=== PATIENT | male | born 1960 | race Caucasian/White ===

== ENCOUNTER 2016-09-26 18:11 | Emergency (ER) | payer BC, OTHER ==
[2016-09-26 18:53] VITALS: BP 164/93
--- NOTE | 2016-09-26 20:23 | RAD ---
HISTORY: Left lower leg trauma, calf swelling COMPARISONS: None VIEWS: 8, Frontal and lateral views of the left foreleg, frontal, lateral, and oblique views of the left foot, frontal, lateral, and oblique views of the left ankle FINDINGS: BONE DENSITY: Normal. BONES: There is no displaced fracture. Incidentally noted is an exostosis of the distal fifth metatarsal JOINTS: There is no arthropathy. ALIGNMENT: There is no dislocation. SOFT TISSUES: Unremarkable. OTHER FINDINGS: None. IMPRESSION: NO ACUTE OSSEOUS INJURY TO THE LEFT FORELEG, ANKLE, OR FOOT. IF SYMPTOMS PERSIST, RECOMMEND REPEAT IMAGING.
--- NOTE | 2016-09-28 16:29 | UC ---
Bryce Rashid Michael, scribed for Allison Matamoros MD on 09/26/16 at 1944 . Lower Extremity/Ankle HPI - HPI Summary HPI Summary: 56 y/o male comes to [facility] after a skiing accident 6 days ago. The pt c/o LLE swelling and stiffness. He rates the LLE pain as a 1 out of 10 on a pain assessment scale and the stiffness is aggravated with ambulation. The pt denies knee pain, CP, palpitations, and SOB. - History of Current Complaint Chief Complaint: UCLowerExtremity Stated Complaint: LT LEG INJURY Time Seen by Provider: 09/26/16 19:32 Hx Obtained From: Patient, Medical Records Onset/Duration: Gradual Onset, Lasting Days, Still Present Severity Initially: Mild Severity Currently: Mild Pain Intensity: 1 Pain Scale Used: 0-10 Numeric Aggravating Factor(s): Ambulation Alleviating Factor(s): Nothing Related History: Other - skiiing - Allergies/Home Medications Allergies/Adverse Reactions: Allergies Allergy/AdvReac Type Severity Reaction Status Date / Time No Known Allergies Allergy Verified 09/26/16 21:34 PMH/Surg Hx/FS Hx/Imm Hx Endocrine History Of: Denies: Diabetes, Thyroid Disease Cardiovascular History Of: Denies: Cardiac Disorders, Hypertension Respiratory History Of: Denies: COPD, Asthma GI/ History Of: Denies: Ulcer - Surgical History Surgical History: None - Family History Known Family History: Negative: Blood Disorder - Social History Occupation: Employed Full-time Lives: With Family Alcohol Use: None Substance Use Type: None Smoking Status (MU): Never Smoked Tobacco Review of Systems Respiratory: Negative - SOB Cardiovascular: Negative - CP, palpitaions Musculoskeletal: Other: - LLE swelling and stiffness All Other Systems Reviewed And Are Negative: Yes Physical Exam Triage Information Reviewed: Yes Appearance: Well-Nourished Vital Signs: Initial Vital Signs Temp 98.8 F 09/26/16 18:47 Pulse 65 09/26/16 18:47 Resp 16 09/26/16 18:47 BP 164/93 09/26/16 18:47 Pulse Ox 97 09/26/16 18:47 Vital Signs Reviewed: Yes Eye Exam: Normal ENT Exam: Normal Neck exam: Normal - no adenopathy Respiratory Exam: Normal Respiratory: Positive: Chest non-tender, Lungs clear, Normal breath sounds, No respiratory distress, Other: - no dyspnea, no tachypnea. nml respiratory rate Cardiovascular: Positive: RRR, No Murmur, Pulses Normal, Brisk Capillary Refill Abdominal Exam: Normal Abdomen Description: Positive: Nontender, No Organomegaly, Soft Bowel Sounds: Positive: Present Musculoskeletal: Positive: Other: - lower distal tibia area tenderness. bruising of the left heel. Neurological Exam: Normal - nonfocal. grossly intact. Psychological Exam: Normal - conserving easily Psychological: Positive: Age Appropriate Behavior Skin Exam: Normal - no rashes visible Diagnostics - Radiology Ankle XR Xray Interpretation: No Acute Changes - NO ACUTE OSSEOUS INJURY TO THE LEFT FORELEG, ANKLE, OR FOOT. IF SYMPTOMS PERSIST, RECOMMEND REPEAT IMAGING. Radiology Interpretation Completed By: Radiologist Foot XR Xray Interpretation: No Acute Changes - NO ACUTE OSSEOUS INJURY TO THE LEFT FORELEG, ANKLE, OR FOOT. IF SYMPTOMS PERSIST, RECOMMEND REPEAT IMAGING. Radiology Interpretation Completed By: Radiologist Leg XR Xray Interpretation: No Acute Changes - NO ACUTE OSSEOUS INJURY TO THE LEFT FORELEG, ANKLE, OR FOOT. IF SYMPTOMS PERSIST, RECOMMEND REPEAT IMAGING. Radiology Interpretation Completed By: Radiologist Lower Extremity Course/Dx - Course Course Of Treatment: Patient offered and encouraged EMS. Patient declines. Discussed patient transfer to [facility] ED with Paramjit Lee. - Differential Dx/Diagnosis Provider Diagnoses: Left lower extremity swelling and pain Discharge - Discharge Plan Condition: Stable Disposition: AGAINST MEDICAL ADVICE Referrals: Lisa Hector MD [Primary Care Provider] - The documentation as recorded by the Bryce magallanes Michael accurately reflects the service I personally performed and the decisions made by me, Allison Matamoros MD.
== END 2016-09-26 20:35 | disposition left against medical advice (07) ==
LOC: UCEAST 18:11
DX: M79.89 Other specified soft tissue disorders (principal); M79.605 Pain in left leg
CPT/HCPCS: 99212; G0463

== ENCOUNTER 2016-09-26 21:29 | Emergency (ER) | payer OTHER ==
[2016-09-26 21:33] VITALS: BP 148/85
--- NOTE | 2016-09-26 22:41 | RAD ---
HISTORY: Left leg pain COMPARISONS: None relevant TECHNIQUE: Multiple transverse and longitudinal ultrasound images were obtained of the left lower extremity from the level of the common femoral vein inferiorly through to the infrapopliteal veins using grayscale, color Doppler, and spectral Doppler imaging with and without compression and with augmentation. Comparison images were obtained of the contralateral common femoral vein. FINDINGS: VEINS: The venous system of the left lower extremity is compressible throughout its course, with normal flow on color Doppler imaging and normal response to augmentation on spectral Doppler imaging. SOFT TISSUES: There is a small fluid collection within the left calf measuring approximately 4.6 x 0.7 x 11.2 cm in size. OTHER FINDINGS: None. IMPRESSION: 1. NO LEFT LOWER EXTREMITY DEEP VEIN THROMBOSIS 2. SMALL FLUID COLLECTION WITHIN THE LEFT CALF MAY REFLECT SEROMA/EVOLVING HEMATOMA GIVEN THE HISTORY OF TRAUMA
--- NOTE | 2016-09-27 00:33 | ED ---
Lower Extremity - HPI Summary HPI Summary: Patient presents to ED with CC left lower extremity swelling after sustaining an injury while skiing. He states he fell and came out of his boot. Since then , he has had ecchymosis around the posterior portion of the left foot, +3 swelling and painful to walk. He was ambulatory on arrival and states he was able to bike to work this am. His pain is located in the posterior calf. He denies recent travel, smoking, malignancy or recent bedrest. He has never had anything like this before. Denies PMHx and denies medications. - History of Current Complaint Chief Complaint: EDExtremityLower Stated Complaint: LT LEG SWOLLEN Time Seen by Provider: 09/26/16 22:00 Hx Obtained From: Patient Mechanism Of Injury: Fall From A Standing Position, Twisted Onset of Pain: Immediate Onset/Duration: Hours Severity Initially: Moderate Severity Currently: Moderate Pain Intensity: 0 Pain Scale Used: 0-10 Numeric Timing: Constant Location: Is Discrete @ - left posterior calf Character Of Pain: Aching, Throbbing Associated Signs And Symptoms: Positive: Swelling, Bruising Aggravating Factor(s): Standing, Ambulation Alleviating Factor(s): Rest, Elevation Able to Bear Weight: Yes - Risk Factors Gout Risk Factors: Age Over 40, Male DVT Risk Factors: Negative Septic Arthritis Risk Factor: Negative - Allergies/Home Medications Allergies/Adverse Reactions: Allergies Allergy/AdvReac Type Severity Reaction Status Date / Time No Known Allergies Allergy Verified 09/26/16 21:34 PMH/Surg Hx/FS Hx/Imm Hx Previously Healthy: Yes Endocrine/Hematology History: Denies: Hx Diabetes, Hx Thyroid Disease Cardiovascular History: Denies: Hx Hypertension Respiratory History: Denies: Hx Asthma, Hx Chronic Obstructive Pulmonary Disease (COPD) GI History: Denies: Hx Ulcer Infectious Disease History: No Infectious Disease History: Denies: Hx Hepatitis, Hx Human Immunodeficiency Virus (HIV), Traveled Outside the [place] in Last 30 Days - Social History Occupation: Employed Full-time Lives: With Family Alcohol Use: None Hx Substance Use: No Substance Use Type: Reports: None Hx Tobacco Use: No Smoking Status (MU): Never Smoked Tobacco Do You Chew or Dip Tobacco: No Review of Systems Constitutional: Negative Eyes: Negative Cardiovascular: Negative Respiratory: Negative Genitourinary: Negative Positive: no symptoms reported, see HPI Positive: Myalgia Positive: Bruising Neurological: Negative Psychological: Normal All Other Systems Reviewed And Are Negative: Yes Physical Exam Triage Information Reviewed: Yes Vital Signs On Initial Exam: Initial Vitals Temp Pulse Resp BP Pulse Ox 97.9 F 60 16 148/85 100 09/26/16 21:30 09/26/16 21:30 09/26/16 21:30 09/26/16 21:30 09/26/16 21:30 Vital Signs Reviewed: Yes Appearance: Positive: Well-Appearing, Well-Nourished Skin: Positive: Warm, Skin Color Reflects Adequate Perfusion Eyes: Positive: Normal, KEN ENT: Positive: Normal ENT inspection Neck: Positive: Supple, No Lymphadenopathy Respiratory/Lung Sounds: Positive: Clear to Auscultation, Breath Sounds Present Cardiovascular: Positive: Normal, RRR Bowel Sounds: Positive: Present Musculoskeletal: Positive: Pain @ - posterior calf Neurological: Positive: Normal, Sensory/Motor Intact, Alert, Oriented to Person Place, Time Psychiatric: Positive: Normal AVPU Assessment: Alert Diagnostics - Vital Signs Vital Signs Temp Pulse Resp BP Pulse Ox 09/26/16 21:30 97.9 F 60 16 148/85 100 - Laboratory Lab Statement: Any lab studies that have been ordered have been reviewed, and results considered in the medical decision making process. Lower Extremity Course/Dx - Course Course Of Treatment: Patient sent for US. Xrays at of lower leg and ankle revealed no fracture. Patient encouraged to elevate and ice and use compression hose and ibuprofen for the time until healing. He agrees and OK with discharge and follow up. - Diagnoses Differential Diagnosis/HQI/PQRI: Positive: Contusion, DVT, Sprain, Strain Provider Diagnoses: Muscle strain Discharge - Discharge Plan Condition: Stable Disposition: HOME Patient Education Materials: Leg Edema (ED) Referrals: Lisa Hector MD [Primary Care Provider] - Additional Instructions: Ibuprofen 600mg three times daily with meals for pain. Follow up with orthopedic physician in 5-7 days if symptoms persist. If numbness, tingling, decreased sensation, increased pain, temperature changes or pallor noted in toes, come back to ER immediately. Protect the area. For your comfort level, do not bear weight, pull or push until you are without pain. Rest the involved area, but not too long. You may need to be off your injury for some time to allow for healing, however excessive immobilization of joints can lead to stiffness and delay healing time. Early mobilization is encouraged if it is pain-free. Ice. Not directly on the skin. Cover with a towel. Apply ice no more than 30 minutes at a time Compression: You may use and keep an alla wrap bandage over the injury to decrease swelling. Again, this should be limited and be taken off periodically to encourage early range of motion and mobilization. Elevate: Try to elevate the injured area above the heart whenever possible.
== END 2016-09-26 23:36 | disposition home or self-care (01) ==
LOC: ED 21:29
DX: S86.912A Strain of unspecified muscle(s) and tendon(s) at lower leg level, left leg, initial encounter (principal); W19.XXXA Unspecified fall, initial encounter; Y93.23 Activity, snow (alpine) (downhill) skiing, snowboarding, sledding, tobogganing and snow tubing; Y92.9 Unspecified place or not applicable
CPT/HCPCS: 99281

== ENCOUNTER 2019-01-22 12:59 | Emergency (ER) | payer OTHER ==
[2019-01-22 13:13] VITALS: BP 154/98
--- NOTE | 2019-01-22 13:51 | UC ---
Skin Complaint HPI - HPI Summary HPI Summary: 59 year old male with no pmH presents with burning, itchy sensation, worse at night . ~ 8 days. started in groin, spread to chest, upper arms, b/l thighs. no rashes seen. Patient lives in tent under lean[place]to outdoors with a bird living in lean-to next to tent. recent travel [place] [facility] with exposure to sand. STayed at 5 star hotel, did to laundry there. NO new food, no eating mushrooms, no ETOH/ drug use. Denies fever, chills, nipples pain, rashes, joint ahches, headaches, muscle pains, involvement of hair. Otherwise feeling well. - History of Current Complaint Chief Complaint: UCSkin Time Seen by Provider: 01/22/19 13:12 Stated Complaint: RASH Hx Obtained From: Patient Onset/Duration: Sudden Onset, Lasting Days, Still Present Timing: Constant Current Severity: None Pain Intensity: 0 Pain Scale Used: 0-10 Numeric Location: Diffuse Character: Exposure to Heat Intermittent Aggravating Factor(s): Nothing Alleviating Factor(s): Nothing Associated Signs & Symptoms: Negative: Numbness, Weakness, Pallor, Difficulty Breathing, Fever, Chills, Chest Pain, Throat Tightening, Rash, Abdominal Pain, Lightheadedness, Syncope, Bruising, Tenderness, Red Streaks, Joint Swelling - Allergy/Home Medications Allergies/Adverse Reactions: Allergies Allergy/AdvReac Type Severity Reaction Status Date / Time oxacillin Allergy Hives Verified 01/22/19 13:13 PMH/Surg Hx/FS Hx/Imm Hx Previously Healthy: Yes - Surgical History Surgical History: Yes Surgery Procedure, Year, and Place: Left knee. TONSILS - Family History Known Family History: Positive: None, Non-Contributory - Social History Alcohol Use: None Substance Use Type: None Smoking Status (MU): Never Smoked Tobacco Review of Systems All Other Systems Reviewed And Are Negative: Yes Constitutional: Positive: Negative Skin: Positive: Other - itching, burning sensation on skin Motor: Negative: Decreased ROM, Weakness Musculoskeletal: Negative: Arthralgia, Calf Tenderness, Decreased ROM, Edema, Myalgia Neurological: Negative: Weakness, Paresthesia, Numbness Is Patient Immunocompromised?: No Physical Exam Triage Information Reviewed: Yes Appearance: Well-Appearing, No Pain Distress, Well-Nourished Vital Signs: Initial Vital Signs Temp 99.7 F 01/22/19 13:10 Pulse 69 01/22/19 13:10 Resp 17 01/22/19 13:10 BP 154/98 01/22/19 13:10 Pulse Ox 98 01/22/19 13:10 Vital Signs Reviewed: Yes Eyes: Positive: Conjunctiva Clear Neck: Positive: Supple, Nontender, No Lymphadenopathy. Negative: Nuchal Rigidity Respiratory: Positive: No respiratory distress, No accessory muscle use Abdomen Description: Positive: Soft. Negative: Distended, Guarding Male Genital Exam: Positive: Normal Genitalia. Negative: Epididymal Tenderness , Erythema, Hernia Mass, Inguinal Tenderness, Lesions Musculoskeletal: Positive: Strength Intact, ROM Intact. Negative: No Edema Neurological: Positive: Alert, Muscle Tone Normal Psychological Exam: Normal Skin: Positive: Other - no rashes, lesions, excoriations, vesicles, erytthema seen throughout body, including skin folds, between finger/ toes, nippes, chest , groin b/l, UE, LEs no TTP over joints, no effusions noted.. Negative: Rashes , Breakdown Course/Dx - Course Course Of Treatment: Discussed case with Dr. Pate and Dr. Rogers, patients PCP. lab work drawn to eval for interal cause such as kidney, liver damage. Treatment for mites including washing all bedding/ home and showering. ANtihistamines to help with itch at night. - Differential Diagnoses - Skin Complaint Differential Diagnoses: Angioedema, Cellulitis, Contact Dermatitis, Scabies, Tick Born Illness, Viral Exanthem - Diagnoses Provider Diagnosis: Contact dermatitis Discharge - Sign-Out/Discharge Documenting (check all that apply): Patient Departure All imaging exams completed and their final reports reviewed: No Studies - Discharge Plan Condition: Good Disposition: HOME Patient Education Materials: Contact Dermatitis (ED) Referrals: Lisa Rogers MD [Primary Care Provider] - (2-5 days ) Additional Instructions: - Blood work drawn to evaluate for systemic cause of itching, follow up with Dr. Rogers. She was notified of your problem. Follow up with her this week - ANtihistamine, such as benadryl, to help with sleeping at night - Wash bedding, living area in hot water - Daily showering - Continue to monitor area for rash - Increase fluid intake - Billing Disposition and Condition Condition: GOOD Disposition: Home - Attestation Statements Provider Attestation: I was available for consult. This patient was seen by the SUZANNA. The patient was not presented to, seen by, or examined by me. -Cassius
[2019-01-23 13:42] LABS: Hematocrit 38 % (42-52); Hemoglobin 13.2 g/dL (14.0-18.0); Mean Corpuscular HGB Conc 35 g/dL (31-36); Mean Corpuscular Hemoglobin 30 pg (27-31); Mean Corpuscular Volume 86 fL (80-94); Mean Platelet Volume 7.8 fL (7.4-10.4); Platelet Count 298 10^3/uL (150-450); Red Blood Count 4.44 10^6 /uL (4.18-5.48); Red Cell Distribution Width 13 % (10-15); White Blood Count 6.4 10^3/uL (3.5-10.8)
[2019-01-23 13:56] LABS: Albumin 4.2 g/dL (3.2-5.2); Albumin/Globulin Ratio 2.1 (1-3); BUN/Creatinine Ratio 18.9 (8-20); Calcium 9.1 mg/dL (8.6-10.3); EGFR African American 97.5 (>60); EGFR Non-African American 80.6 (>60); Potassium 4.2 mmol/L (3.5-5.0); Total Bilirubin 1.1 mg/dL (0.2-1.0); Total Protein 6.2 g/dL (6.4-8.9)
[2019-01-23 14:08] LABS: TSH (Thyroid Stimulating Horm) 2.29 mcIU/mL (0.34-5.60)
[2019-01-23 14:45] LABS: ABS Eosinophils 0.1 10^3/ul (0-0.6); ABS Lymphocytes 1.2 10^3/ul (1.0-4.8); ABS Monocytes 0.6 10^3/ul (0-0.8); ABS Neutrophils 4.5 10^3/ul (1.5-7.7); Eosinophil % 1.4 %; Nucleated Red Blood Cells % 0.1
--- NOTE | 2019-01-23 17:14 | UC ---
- Progress Note Progress Note: CBC with diff non concerning - path pending CMP wnl tsh wnl No change reillyj 01/23/19 Course/Dx - Diagnoses Provider Diagnoses: Contact dermatitis Discharge - Sign-Out/Discharge Documenting (check all that apply): Post-Discharge Follow Up All imaging exams completed and their final reports reviewed: No Studies - Discharge Plan Condition: Good Disposition: HOME Patient Education Materials: Contact Dermatitis (ED) Referrals: Lisa Hector MD [Primary Care Provider] - (2-5 days ) Additional Instructions: - Blood work drawn to evaluate for systemic cause of itching, follow up with Dr. Hector. She was notified of your problem. Follow up with her this week - ANtihistamine, such as benadryl, to help with sleeping at night - Wash bedding, living area in hot water - Daily showering - Continue to monitor area for rash - Increase fluid intake - Billing Disposition and Condition Condition: GOOD Disposition: Home
[2019-01-25 11:37] LABS: Ferritin 50.4 ng/mL (24-336)
== END 2019-01-22 14:01 | disposition home or self-care (01) ==
LOC: UCEAST 12:59
DX: L25.9 Unspecified contact dermatitis, unspecified cause (principal)
CPT/HCPCS: 36415; 80053; 82607; 82728; 83735; 84443; 85025; 85060; 99211; G0463

== ENCOUNTER 2019-05-07 08:00 | Emergency (ER) | payer OTHER ==
--- OUTSIDE RECORDS SUMMARY | 2019-05-07 08:06 | XMS REPORT | Continuity of Care Document ---
:1960 External Reference #:[id number] Author Name Jt Hernandez MD (transmitted by agent of provider Shasta Grady ) Address [address] [place] [address] Care Team Providers Name Role Phone Lisa Hector MD - Family Care Team Information Arc [facility] [phone] Medicine Problems Description No Information Available Social History Type Date Description Comments Sex Unknown ETOH Use Denies alcohol use Tobacco Use Start: Unknown Patient has never smoked Smoking Status Reviewed: 10/14/18 Patient has never smoked Exercise Type/Frequency Exercises regularly Allergies, Adverse Reactions, Alerts Active Allergies Reaction Severity Comments Date Oxacillin hives 08/16/2018 Medications Active Medications SIG Qnty Indications Ordering Provider Date Ibuprofen 2 tabs by mouth Unknown 200mg Tablets every 8 hours take with food Vitamin E Shots Unknown Immunizations Description No Information Available Vital Signs Date Vital Result Comment 03/16/2019 3:35pm Height 72 inches 6'0" Heart Rate 82 /min BP Systolic 142 mmHg BP Diastolic 88 mmHg Respiratory Rate 18 /min Body Temperature 98.0 F Pain Level 0 10/14/2018 1:07pm Height 72 inches 6'0" Weight 190.00 lb Heart Rate 78 /min BP Systolic 128 mmHg BP Diastolic 70 mmHg Respiratory Rate 12 /min Pain Level 0 BMI (Body Mass Index) 25.8 kg/m2 Results Test Date Facility Test Result H/L Range Note Comp Metabolic 01/22/2019 [facility] Sodium 138 mmol/L Normal 135-145 [address] [place] [address] [phone] Potassium 4.2 mmol/L Normal 3.5-5.0 Chloride 105 mmol/L Normal 101-111 Co2 Carbon Dioxide 24 mmol/L Normal 22-32 Anion Gap 9 mmol/L Normal 2-11 Glucose 106 mg/dL High 70-100 Blood Urea Nitrogen 18 mg/dL Normal 6-24 Creatinine 0.95 mg/dL Normal 0.67-1.17 BUN/Creatinine Ratio 18.9 Normal 8-20 Calcium 9.1 mg/dL Normal 8.6-10.3 Total Protein 6.2 g/dL Low 6.4-8.9 Albumin 4.2 g/dL Normal 3.2-5.2 Globulin 2.0 g/dL Normal 2-4 Albumin/Globulin Ratio 2.1 Normal 1-3 Total Bilirubin 1.10 mg/dL High 0.2-1.0 Alkaline Phosphatase 63 U/L Normal 34-104 Alt 13 U/L Normal 7-52 Ast 16 U/L Normal 13-39 Egfr Non- 80.6 >60 Egfr 97.5 >60 2 Laboratory test 01/22/2019 [facility] Magnesium 2.0 mg/dL Normal 1.9-2.7 [address] [place] [address] [phone] TSH (Thyroid Stim Horm) 2.29 mcIU/mL Normal 0.34-5.60 4 CBC Auto 01/22/2019 [facility] White Blood 6.4 10^3/uL Normal 3.5-10.[address] [place] [address] [phone] Red Blood Count 4.44 10^6/uL Normal 4.18-5.48 Hemoglobin 13.2 g/dL Low 14.0-18.0 Hematocrit 38 % Low 42-52 Mean Corpuscular Volume 86 fL Normal 80-94 Mean Corpuscular Hemoglobin 30 pg Normal 27-31 Mean Corpuscular HGB Conc 35 g/dL Normal 31-36 Red Cell Distribution Width 13 % Normal 10-15 Platelet Count 298 10^3/uL Normal 150-450 Mean Platelet Volume 7.8 fL Normal 7.4-10.4 Abs Neutrophils 4.5 10^3/uL Normal 1.5-7.7 Abs Lymphocytes 1.2 10^3/uL Normal 1.0-4.8 Abs Monocytes 0.6 10^3/uL Normal 0-0.8 Abs Eosinophils 0.1 10^3/uL Normal 0-0.6 Abs Basophils 0.0 10^3/uL Normal 0-0.2 Abs Nucleated RBC 0.0 10^3/uL Granulocyte % 69.9 % Lymphocyte % 19.0 % Monocyte % 9.3 % Eosinophil % 1.4 % Basophil % 0.4 % Nucleated Red Blood Cells % 0.1 Manual 01/22/2019 [facility] Immature 3.0 % Normal 0-[address] [place] [address] [phone] Neutrophil % 68.0 % Band % 3.0 % Normal 0-8 Lymphocytes % 22.0 % Monocytes % 5.0 % Eosinophils % 1.0 % Basophil % 1.0 % RBC Morphology Normal Normal Laboratory test 01/22/2019 [facility] Pathologist Review (SEE NOTE) [address] [place] [address] [phone] Ferritin 50.4 ng/mL Normal 24-336 6 Vitamin B12 167 pg/mL Low 180-914 7 1 [id number] 2 Because ethnic data is not always readily available, this report includes an eGFR for both -Americans and non- Americans. The National Kidney Disease Education Program (NKDEP) does not endorse the use of the MDRD equation for patients that are not between the ages of 18 and 70, are , have extremes of body size, muscle mass, or nutritional status, or are non- or non-. According to the National Kidney Foundation, irrespective of diagnosis, the stage of the disease is based on the level of kidney function: Stage Description GFR(mL/min/1.73 m(2)) 1 Kidney damage with normal or decreased GFR 90 2 Kidney damage with mild decrease in GFR 60-89 3 Moderate decrease in GFR 30-59 4 Severe decrease in GFR 15-29 5 Kidney failure <15 (or dialysis) 3 [id number] 4 [id number] 5 Mild normocytic anemia. Additional studies as clinically warranted. Reviewed by Dr. Thomason 6 [id number] 7 Normal Range 180 to 914 Indeterminate Range 145 to 180 Deficient Range <145 Procedures Date Code Description Status 03/16/2019 53772 Inject/Drain Joint/Bursa Major W/O US Completed Medical Devices Description No Information Available Encounters Type Date Location Provider Dx Diagnosis Office Visit 10/14/2018 [facility] S83.511D Sprain of 1[facility] Hernandez MD anterior cruciate ligament of right knee, subs S83.241D Oth tear of medial meniscus, current injury, r knee, subs Assessments Date Code Description Provider 03/16/2019 S83.511D Sprain of anterior cruciate ligament of Jt Hernandez MD right knee, subseque 03/16/2019 S83.241D Other tear of medial meniscus, current Jt Hernandez MD injury, right knee, s 03/16/2019 S83.271D Complex tear of lateral meniscus, current Jt Hernandez MD injury, right knee 10/14/2018 S83.511D Sprain of anterior cruciate ligament of Jt Hernandez MD right knee, subseque 10/14/2018 S83.241D Other tear of medial meniscus, current Jt Hernandez MD injury, right knee, s Plan of Treatment 03/16/2019 - Jt Hernandez, MDS83.511D Sprain of anterior cruciate ligament of right knee, subsequeNew Therapy:Physical TherapyFollow up:Follow up : end of ski season or sooner as aonhruS82.241D Other tear of medial meniscus , current injury, right knee, sS83.271D Complex tear of lateral meniscus, current injury, right knee Functional Status Description No Information Available Mental Status Description No Information Available Referrals Description No Information Available
--- OUTSIDE RECORDS SUMMARY | 2019-05-07 08:06 | XMS REPORT | Continuity of Care Document ---
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 Medicine Problems Description No Information Available Social [...] Result H/L Range Note Comp Metabolic 01/22/2019 [facility] Sodium 138 mmol/L Normal 135-145 [address] [place] [address] [phone] Potassium 4.2 mmol/L Normal 3.5-5.0 Chloride 105 [...] Egfr 97.5 >60 2 Laboratory test 01/22/2019 [facility] Magnesium 2.0 mg/dL Normal 1.9-2.7 [address] [place] [address] [phone] TSH (Thyroid Stim Horm) 2.29 mcIU/mL Normal 0.34-5.60 4 CBC Auto 01/22/2019 [facility] White Blood 6.4 10^3/uL Normal 3.5-10.[address] [place] [address] [phone] Red Blood Count 4.44 10^6/uL Normal 4.18-5.48 [...] Red Blood Cells % 0.1 Manual 01/22/2019 [facility] Immature 3.0 % Normal 0-[address] [place] [address] [phone] Neutrophil % 68.0 % Band % 3.0 % Normal 0-8 Lymphocytes % 22.0 % Monocytes % 5.0 % Eosinophils % 1.0 % Basophil % 1.0 % RBC Morphology Normal Normal Laboratory test 01/22/2019 [facility] Pathologist Review (SEE NOTE) [address] [place] [address] [phone] Ferritin 50.4 ng/mL Normal 24-336 6 Vitamin B12 167 pg/mL Low 180-914 7 1 [id number] 2 Because ethnic data is not always [...] 5 Kidney failure <15 (or dialysis) 3 [id number] 4 [id number] 5 Mild normocytic anemia. Additional studies as clinically warranted. Reviewed by Dr. Thomason 6 [id number] 7 Normal Range 180 to 914 Indeterminate Range 145 to 180 Deficient Range <145 Procedures Date Code Description Status 03/16/2019 58262 Inject/Drain Joint/Bursa Major W/O US Completed Medical [...] end of ski season or sooner as [id number] Other tear of medial meniscus , current injury, right knee, sS83.271D Complex tear of lateral meniscus, current injury, right knee Functional Status Description No Information Available Mental Status Description No Information Available Referrals Description No Information Available
[2019-05-07 08:11] VITALS: BP 152/91
--- NOTE | 2019-05-07 08:26 | UC ---
Skin Complaint HPI - HPI Summary HPI Summary: patient noticed sore area back of left lower leg 3 days ago, saw open area, not sure how he acquired wound but does ride bike ot work everyday and wears reflective tape around lower leg. Patient denies swelling or drainage Tdap UTD - History of Current Complaint Chief Complaint: UCSkin Time Seen by Provider: 05/07/19 08:03 Stated Complaint: RASH Hx Obtained From: Patient Onset/Duration: Sudden Onset Onset Severity: Mild Current Severity: Mild Pain Intensity: 1 Aggravating Factor(s): Touch Alleviating Factor(s): Nothing Associated Signs & Symptoms: Positive: Negative. Negative: Fever, Chills, Drainage, Red Streaks, Joint Swelling - Allergy/Home Medications Allergies/Adverse Reactions: Allergies Allergy/AdvReac Type Severity Reaction Status Date / Time oxacillin Allergy Hives Verified 05/07/19 08:11 Home Medications: Home Medications Cyanocobalamin INJ * [Vitamin B12 INJ *] 1,000 mcg IM MONTHLY 05/07/19 [History Confirmed 05/07/19] PMH/Surg Hx/FS Hx/Imm Hx Previously Healthy: Yes - Surgical History Surgical History: Yes Surgery Procedure, Year, and Place: Left knee. TONSILS - Family History Known Family History: Positive: None, Non-Contributory - Social History Occupation: Employed Full-time Lives: With Family Alcohol Use: None Substance Use Type: None Smoking Status (MU): Never Smoked Tobacco - Immunization History Vaccination Up to Date: Yes Review of Systems All Other Systems Reviewed And Are Negative: Yes Skin: Positive: Other - sore L lower leg Respiratory: Positive: Negative Cardiovascular: Positive: Negative Musculoskeletal: Positive: Negative Is Patient Immunocompromised?: No Physical Exam Triage Information Reviewed: Yes Appearance: Well-Appearing, No Pain Distress, Well-Nourished Vital Signs: Initial Vital Signs Temp 99.3 F 05/07/19 08:07 Pulse 66 05/07/19 08:07 Resp 18 05/07/19 08:07 BP 152/91 05/07/19 08:07 Pulse Ox 99 05/07/19 08:07 Vital Signs Reviewed: Yes Respiratory Exam: Normal Cardiovascular Exam: Normal Cardiovascular: Positive: RRR Musculoskeletal Exam: Normal Neurological Exam: Normal Psychological Exam: Normal Skin: Positive: Other - superficial abrasion posterior L lower leg without swelling or drainage, no streaking Course/Dx - Differential Diagnoses - Skin Complaint Differential Diagnoses: Abscess, Cellulitis, Contact Dermatitis - Diagnoses Provider Diagnosis: Abrasion Discharge ED - Sign-Out/Discharge Documenting (check all that apply): Patient Departure All imaging exams completed and their final reports reviewed: No Studies - Discharge Plan Condition: Good Disposition: HOME Patient Education Materials: Abrasion (ED) Referrals: Omar Bedolla MD [Primary Care Provider] - 2 Days (if not improving) Additional Instructions: keep wound clean and dry and apply antibiotic ointment once daily for next 3-4 day protect wound from rubbing on clothes follow-up DR. Corrales for blood pressure recheck - Billing Disposition and Condition Condition: GOOD Disposition: Home
== END 2019-05-07 08:30 | disposition home or self-care (01) ==
LOC: UCEAST 08:00
DX: S80.812A Abrasion, left lower leg, initial encounter (principal); Z88.1 Allergy status to other antibiotic agents; X58.XXXA Exposure to other specified factors, initial encounter; Y92.9 Unspecified place or not applicable
CPT/HCPCS: 99212; G0463